=== PATIENT | female | born 1965 | race Hispanic/Latino ===

== ENCOUNTER 2017-10-13 13:15 | Outpatient (CLI) | payer BC ==
--- NOTE | 2017-10-13 15:44 | Mammography Report ---
BILATERAL MAMMOGRAM: FINDINGS: The breast tissue is extremely dense (>75% glandular). This may lower the sensitivity of mammography. No mass, distortion, suspicious calcification, or skin change is seen. No significant change when compared to her prior exam in December 2015. CAD was utilized. IMPRESSION: Negative mammogram. There is no mammographic evidence of malignancy. Due to breast density consider periodic screening ultrasound. RECOMMENDATION: Follow-up per ACS guidelines. BI-RADS CATEGORY: 1 = Negative ACR BI-RADS MAMMOGRAPHIC CODES: 0 = Needs additional imaging evaluation; 1 = Negative; 2 = Benign; 3 = Probably benign; 4 = Suspicious; 5 = Malignant; 6 = Known biopsy-proven malignancy COMMENT: 1. Dense breast tissue, i.e., adenosis, fibrocystic changes, etc., may obscure an underlying neoplasm. 2. Approximately 10% of cancers are not detected with mammography. 3. A negative mammography report should not delay biopsy if a clinically suspicious mass is present. COMMENT: Patient follow-up letters are generated in [employer].
== END 2017-10-13 13:16 | disposition home or self-care (01) ==
LOC: SPVWC 13:15
DX: Z12.31 Encounter for screening mammogram for malignant neoplasm of breast (principal)
CPT/HCPCS: 77067